=== PATIENT | female | born 1960 | race American Indian/Alaskan Native ===

== ENCOUNTER 2016-06-22 11:52 | Emergency (ER) | payer MEDICAID ==
[2016-06-22 12:21] VITALS: BP 133/81
--- NOTE | 2016-06-22 17:45 | Emergency Department Report ---
HPI - General Chief Complaint: Sore Throat Time Seen by Provider: 06/22/16 16:22 - HPI HPI: 56-year-old female presents today with sore throat 3 days. Positive for history of tonsillitis. Positive for painful swallowing. Patient denies fever , chills, cough, runny nose, nausea, vomiting, chest pain, shortness of breath, abdominal pain. Denies sick contacts. She tried Chloraseptic without relief. ED Past Medical Hx - Past Medical History Previous Medical History?: Yes Hx Hypertension: Yes Hx Asthma: No Hx COPD: No Additional medical history: CHRONIC BACK PAIN - Surgical History Past Surgical History?: Yes Additional Surgical History: cyst removal L hand 2005 - Social History Smoking Status: Current Every Day Smoker Substance Use Type: Alcohol, Prescribed, Other - Medications Home Medications: Home Medications Medication Instructions Recorded Confirmed Last Taken Type Nicotine [Habitrol] 14 mg TD DAILY #30 patch 06/02/15 Unknown Rx Famotidine [Pepcid] 20 mg PO BID #60 tablet 06/05/15 Unknown Rx amLODIPine [Norvasc] 5 mg PO DAILY #30 tab 04/01/16 Unknown Rx Amoxicillin [Amoxicillin TAB] 875 mg PO BID #14 tablet 06/22/16 Unknown Rx Lidocaine Viscous 2% 15 ml MM TID #100 ml 06/22/16 Unknown Rx ED Review of Systems ROS: Stated complaint: TONSIL SWOLLEN Other details as noted in HPI Constitutional: denies: chills, fever, malaise Eyes: denies: eye pain ENT: throat pain. denies: ear pain, congestion Respiratory: denies: cough, shortness of breath, wheezing Cardiovascular: denies: chest pain, palpitations Endocrine: no symptoms reported Gastrointestinal: denies: abdominal pain, nausea, vomiting Neurological: denies: headache, weakness Physical Exam - Physical Exam Vital Signs: Vital Signs 06/22/16 12:18 Temperature 98.3 F Pulse Rate 64 Respiratory 20 Rate Blood Pressure 133/81 O2 Sat by Pulse 100 Oximetry Physical Exam: GENERAL: The patient is well-developed and well-nourished. Patient is in NAD. HEAD: Normocephalic. Atraumatic. EYES: PERRL. EARS: External auditory canals and tympanic membranes clear; hearing grossly intact. NOSE: Normal nasal mucosa with no nasal discharge. THROAT: Positive for erythema. No tonsillomegaly or tonsillar exudates noted. NECK: Positive anterior cervical lymphadenopathy. CHEST/LUNGS: Clear to auscultation throughout. HEART/CARDIOVASCULAR: Regular rate and rhythm. ABDOMEN: Abdomen is soft, nontender. No guarding or rebound tenderness. EXTREMITIES: Peripheral pulses intact. Capillary refill less than 2 seconds. NEURO: Alert and oriented x 3. Normal gait. ED Course Vital Signs 06/22/16 12:18 Temperature 98.3 F Pulse Rate 64 Respiratory 20 Rate Blood Pressure 133/81 O2 Sat by Pulse 100 Oximetry ED Medical Decision Making - Lab Data Vital Signs 06/22/16 12:18 Temperature 98.3 F Pulse Rate 64 Respiratory 20 Rate Blood Pressure 133/81 O2 Sat by Pulse 100 Oximetry - Medical Decision Making 56-year-old female presents today with sore throat 3 days. Her rapid strep test is negative. Patient is in no acute distress at this time. She will be discharged home and is encouraged to follow up with a primary care provider. She will be sent home on amoxicillin, viscous lidocaine and is encouraged to return to the emergency room for any worsening symptoms. Critical care attestation.: If time is entered above; I have spent that time in minutes in the direct care of this critically ill patient, excluding procedure time. ED Disposition Clinical Impression: Pharyngitis Qualifiers: Pharyngitis/tonsillitis etiology: unspecified etiology Qualified Code(s): J02.9 - Acute pharyngitis, unspecified Disposition: DISCHARGED TO HOME OR SELFCARE Is pt being admited?: No Does the pt Need Aspirin: No Condition: Stable Instructions: Pharyngitis (ED), Tonsillitis (ED) Additional Instructions: Follow-up with primary care provider. Return to the emergency department if symptoms worsen. Prescriptions: Amoxicillin [Amoxicillin TAB] 875 mg PO BID #14 tablet Lidocaine Viscous 2% 15 ml MM TID #100 ml Referrals: PRIMARY CARE [Primary Care Provider] - 3-5 Days [facility] [Outside] - 3-5 Days Forms: Work/School Release Form(ED) Time of Disposition: 17:45
== END 2016-06-22 17:59 | disposition home or self-care (01) ==
LOC: ED 11:52
DX: J02.9 Acute pharyngitis, unspecified (principal); I10 Essential (primary) hypertension; G89.29 Other chronic pain; F17.200 Nicotine dependence, unspecified, uncomplicated
CPT/HCPCS: 87116; 87430; 99282